=== PATIENT | male | born 1995 | race Caucasian/White ===

== ENCOUNTER 2019-02-14 17:13 | Emergency (ER) | payer MEDICAID ==
[2019-02-14 17:27] VITALS: TEMP 98.9; O2SAT 98
--- NOTE | 2019-02-14 18:10 | ED PDOC ---
HPI: Psych/Substance Abuse Time Seen by Provider: 02/14/19 17:27 Chief Complaint (Nursing): Psychiatric Evaluation Chief Complaint (Provider): Psychiatric Evaluation History Per: Patient History/Exam Limitations: no limitations Onset/Duration Of Symptoms: Hrs Current Symptoms Are (Timing): Still Present Additional Complaint(s): Patient is a 23 y/o male with no significant PMHx who was brought into the ED after getting into a verbal argument with his girlfriend, earlier today, which angered him and made him have suicidal thoughts. Patient reports after the argument he saw a fork and wanted to stab himself in his neck. Patient states his mother last month and ever since he has been having worsening anger issues. Patient claims the thoughts are fleeting. Currently, patient denies hallucinations and suicidal or homicidal ideation. PCP: None Provided Past Medical History Reviewed: Historical Data, Nursing Documentation, Vital Signs Vital Signs: Last Vital Signs Temp 98.9 F 02/14/19 17:23 Pulse 113 H 02/14/19 17:23 Resp 21 02/14/19 17:23 BP 130/98 H 02/14/19 17:23 Pulse Ox 98 02/14/19 17:23 - Medical History PMH: No Chronic Diseases - Surgical History Surgical History: No Surg Hx - Family History Family History: States: No Known Family Hx - Allergies Allergies/Adverse Reactions: Allergies Allergy/AdvReac Type Severity Reaction Status Date / Time No Known Allergies Allergy Verified 02/14/19 17:23 Review of Systems ROS Statement: Except As Marked, All Systems Reviewed And Found Negative Psych: Negative for: Suicidal ideation (or homicidal ideation), Other (hallucinations) Physical Exam - Reviewed Nursing Documentation Reviewed: Yes Vital Signs Reviewed: Yes - Physical Exam Appears: Positive for: No Acute Distress Head Exam: Positive for: ATRAUMATIC, NORMAL INSPECTION, NORMOCEPHALIC Skin: Positive for: Normal Color, Warm, DRY Eye Exam: Positive for: EOMI, Normal appearance, PERRL Neck: Positive for: Normal, Painless ROM, Supple Cardiovascular/Chest: Positive for: Regular Rate, Rhythm. Negative for: Murmur Respiratory: Positive for: Normal Breath Sounds. Negative for: Respiratory Distress Gastrointestinal/Abdominal: Positive for: Normal Exam, Soft. Negative for: Tenderness Back: Positive for: Normal Inspection. Negative for: L CVA Tenderness, R CVA Tenderness, Vertebral Tenderness Extremity: Positive for: Normal ROM. Negative for: Pedal Edema, Deformity Neurological/Psych: Positive for: Alert, Oriented (x3) - ECG O2 Sat by Pulse Oximetry: 98 (RA) Pulse Ox Interpretation: Normal Medical Decision Making Medical Decision Making: Time: 1726 Impression: Suicidal Thoughts Plan: Drug Screen, Urine Crisis Evaluation 1:1 Observation Time: 1944 Patient evaluated by Irlanda, lineworker, who discussed case with Dr. Lyons who cleared patient for discharge. Scribe Attestation: Documented by Richard Denson, acting as a scribe Chasidy Hua PA-C. Provider Scribe Attestation: All medical record entries made by the Scribe were at my direction and pers onally dictated by me. I have reviewed the chart and agree that the record accurately reflects my personal performance of the history, physical exam, medical decision making, and the department course for this patient. I have also personally directed, reviewed, and agree with the discharge instructions and disposition. Disposition - Clinical Impression Clinical Impression: Adjustment disorder - Patient ED Disposition Is Patient to be Admitted: No - Disposition Referrals: FAMILY PROVIDER,NO [Primary Care Provider] - Disposition: Routine/Home Disposition Time: 19:50 Condition: STABLE Additional Instructions: BLAIR SHOOK, thank you for letting us take care of you today. Your provider was Tracy Reynaga MD and you were treated for PSYCH EVAL. The emergency medical care you received today was directed at your acute symptoms. If you were prescribed any medication, please fill it and take as directed. It may take several days for your symptoms to resolve. Return to the Emergency Department if your symptoms worsen, do not improve, or if you have any other problems. Please contact your doctor or call one of the physicians/clinics you have been referred to that are listed on the Patient Visit Information form that is included in your discharge packet. Bring any paperwork you were given at discharge with you along with any medications you are taking to your follow up visit. Our treatment cannot replace ongoing medical care by a primary care provider outside of the emergency department. Thank you for allowing the [facility] team to be part of your care today. If you had an X-Ray or CT scan: A Radiologist will review the ED reading if any change in treatment is needed we will contact you. If you had a blood, urine, or wound culture: It will take several days for the results, if any change in treatment is needed we will contact you. If you had an STI test: It will take 48 hours for the results. Please call after 1 week if you have not heard back. Instructions: Adjustment Disorder Forms: [employer] (Indonesian) Print Language: CHILEAN
[2019-02-14 19:38] LABS: BARBITURATES, UR NEGATIVE (NEGATIVE); BENZODIAZEPINES, UR NEGATIVE (NEGATIVE); OPIATES, UR NEGATIVE (NEGATIVE); PHENCYCLIDINE, UR NEGATIVE (NEGATIVE)
[2019-02-14 20:00] VITALS: BP 139/97; PULSE 87; RESP 18
== END 2019-02-14 20:19 | disposition home or self-care (01) ==
LOC: H.ER 17:13 → SUPCPDRO 17:13 → H.ER 20:19
DX: F43.20 Adjustment disorder, unspecified (principal)